=== PATIENT | male | born 1980 | race Caucasian/White ===

== ENCOUNTER 2017-11-09 21:57 | Emergency (ER) | payer SELFPAY ==
[2017-11-09] MEDS: Ibuprofen 600 MG Tab PO ONE (22:32)
--- NOTE | 2017-11-09 23:31 | EDM.PDOC ---
ED HPI GENERAL MEDICAL PROBLEM - General Chief Complaint: Eye Problems Stated Complaint: POSS EYE INJURY Time Seen by Provider: 11/09/17 22:28 - History of Present Illness INITIAL COMMENTS - FREE TEXT/NARRATIVE: 37-year-old male presents emergency room with eye pain. 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 The patient was wearing dark glasses but not full welding protection. Run 6 or 7 this evening he developed some pain in both eyes this is progressively worsened his eyes been watering quite a bit. Patient has not had injuries like this in the past he denies any foreign body exposures or other potential injuries today. Tetanus up-to-date. 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 Bilateral Eye Pain Score (Numeric/FACES): 10 - Related Data Allergies Allergy/AdvReac Type Severity Reaction Status Date / Time No Known Allergies Allergy Verified 11/09/17 22:07 Home Meds: Home Meds Ranitidine HCl [Ranitidine] 150 mg PO DAILY 11/09/17 [History] Past Medical History Gastrointestinal History: Reports: GERD, Other (See Below) Other Gastrointestinal History: diverticulitis Musculoskeletal History: Reports: Other (See Below) Other Musculoskeletal History: degenerative disk Social & Family History - Tobacco Use Smoking Status *Q: Never Smoker Second Hand Smoke Exposure: No - Caffeine Use Caffeine Use: Reports: Coffee - Recreational Drug Use Recreational Drug Use: No ED ROS GENERAL - Review of Systems Review Of Systems: See Below Constitutional: Reports: No Symptoms HEENT: Reports: Eye Pain Respiratory: Reports: No Symptoms, Cough GI/Abdominal: Reports: No Symptoms ED EXAM GENERAL W FULL EYE - Physical Exam Exam: See Below Exam Limited By: No Limitations General Appearance: Alert, No Apparent Distress Visual Acuity (R) 20/: 40 Visual Acuity (L) 20/: 40 With Correction: No Eyelids: Bilateral: Erythema (Mild), Lid Everted for Exam Conjunctiva & Sclera: Bilateral: Conjunctival Edema (Mild) Cornea Exam: Bilateral: Examined with Flourescein (Typical punctated lesions consistent with photo keratosis) Extraocular Movements: Bilateral: Intact Pupillary Reaction: Bilateral: Brisk Anterior Chamber: Bilateral: Normal Appearance Posterior Chamber: Bilateral: Normal Funduscopic Throat/Mouth: Normal Inspection, Normal Lips, Normal Teeth, Normal Gums, Normal Oropharynx, Normal Voice, No Airway Compromise Head: Atraumatic, Normocephalic Neck: Normal Inspection, Supple, Non-Tender, Full Range of Motion Respiratory/Chest: No Respiratory Distress, Lungs Clear, Normal Breath Sounds Cardiovascular: Regular Rate, Rhythm, No Murmur Course - Vital Signs Last Recorded V/S: Last Vital Signs Temp 36.2 C 11/09/17 22:04 Pulse 75 11/09/17 22:04 Resp 20 11/09/17 22:04 BP 126/83 11/09/17 22:04 Pulse Ox 97 11/09/17 22:04 - Orders/Labs/Meds Meds: Medications Discontinued Medications Generic Name Dose Route Start Last Admin Trade Name Heron PRN Reason Stop Dose Admin Erythromycin 1 gm 11/09/17 23:21 Erythromycin 0.5% Ophth Oint EYEBOTH 11/09/17 23:22 ONETIME ONE Fluorescein Sodium 0.6 mg 11/09/17 22:58 Ful-Debbie EYEBOTH 11/09/17 22:59 ONETIME ONE Ibuprofen 600 mg 11/09/17 22:30 11/09/17 22:32 Motrin PO 11/09/17 22:31 600 mg ONETIME ONE Administration Proparacaine HCl 0.01 ml 11/09/17 23:15 Proparacaine 0.5% Ophth Soln EYEBOTH 11/09/17 23:16 ONETIME ONE Departure - Departure Time of Disposition: 23:28 Disposition: Home, Self-Care 01 Clinical Impression: Photokeratitis of both eyes - Discharge Information Referrals: PCP,None [Primary Care Provider] - Forms: ED Department Discharge Additional Instructions: Return to the emergency room with any questions problems worsening symptoms. Follow-up with your eye doctor either tomorrow afternoon or Tuesday morning. You have been given 2 medications to the emergency department the first witnessed hydrocodone use this one or 2 every 4-6 hours for pain. Allow 12 hours after using this medication before driving or returning to work You have also been given some erythromycin eye ointment use 1/2 inch to each eye every 3- 4 hours while awake this acts like eye grease.. Follow-up at the workmen's comp doctor as directed.
[2017-11-09] MEDS: Fluorescein 0.6 MG Ophth Strip EYEBOTH ONE (23:39)
[2017-11-09] MEDS: Proparacaine 0.5% Ophth Soln 15 ML Bottle EYEBOTH ONE (23:39)
[2017-11-09] MEDS: Erythromycin Base 0.5% Ophth Oint 1 GM Tube EYEBOTH ONE (23:39)
== END 2017-11-09 23:41 | disposition home or self-care (01) ==
LOC: JD.ED 21:57
DX: H16.133 Photokeratitis, bilateral (principal); Z79.899 Other long term (current) drug therapy
CPT/HCPCS: 99283; A9270

== ENCOUNTER 2018-01-13 07:04 | Emergency (ER) | payer SELFPAY ==
[2018-01-13] MEDS ORDERED: Sodium Chloride 0.9% 10 ML Syringe FLUSH PRN (07:34)
[2018-01-13] MEDS ORDERED: Sodium Chloride 0.9% 1,000 ML IV STA (07:34)
[2018-01-13] MEDS ORDERED: Ondansetron 4 MG/2 ML SDV IVPUSH ONE (07:34)
[2018-01-13] MEDS ORDERED: HYDROmorphone 0.5 MG/0.5 ML SYRINGE IVPUSH ONE (07:35)
[2018-01-13] MEDS ORDERED: metroNIDAZOLE/Normal Saline 500 MG in Premix Bag 1 BAG IV ONE (07:37)
--- NOTE | 2018-01-13 07:40 | EDM.PDOC ---
ED HPI GENERAL MEDICAL PROBLEM - General Chief Complaint: Abdominal Pain Stated Complaint: ABDOMINAL PAIN Time Seen by Provider: 01/13/18 07:28 Source of Information: Reports: Patient History Limitations: Reports: No Limitations - History of Present Illness INITIAL COMMENTS - FREE TEXT/NARRATIVE: The patient presents with left lower quadrant abdominal pain, nausea, vomiting and diarrhea. This started last night. He has a history of diverticulitis. He says this is usually how it starts for him. He will get amoxicillin and flagyl. He has no fever, chills, chest pain, cough, shortness of breath or dysuria. He still has his appendix and gallbladder. Onset: Gradual Duration: Day(s): (Last night) Location: Reports: Abdomen Quality: Reports: Sharp Severity: Severe Improves with: Reports: None Worsens with: Reports: None Associated Symptoms: Reports: Loss of Appetite, Nausea/Vomiting. Denies: Chest Pain, Fever/Chills, Headaches, Shortness of Breath Lower Abdominal Pain Score (Numeric/FACES): 8 - Related Data Allergies Allergy/AdvReac Type Severity Reaction Status Date / Time No Known Allergies Allergy Verified 01/13/18 07:25 Home Meds: Home Meds Ranitidine HCl [Ranitidine] 150 mg PO DAILY 11/09/17 [History] Amoxicillin 1,000 mg PO BID #40 tab 01/13/18 [Rx] Cyclobenzaprine [Flexeril] 10 mg PO TID PRN #20 tab 01/13/18 [Rx] Hydrocodone/Acetaminophen [Hydrocodon-Acetaminophen 5-325] 1 - 2 each PO Q6HR PRN #10 tablet 01/13/18 [Rx] metroNIDAZOLE [Flagyl] 500 mg PO Q8H #30 tab 01/13/18 [Rx] Past Medical History Gastrointestinal History: Reports: GERD, Other (See Below) Other Gastrointestinal History: diverticulitis Musculoskeletal History: Reports: Arthritis, Other (See Below) Other Musculoskeletal History: degenerative disk Social & Family History - Tobacco Use Smoking Status *Q: Never Smoker Second Hand Smoke Exposure: No - Caffeine Use Caffeine Use: Reports: Coffee - Recreational Drug Use Recreational Drug Use: Yes Drug Use in Last 12 Months: Yes Recreational Drug Type: Reports: Marijuana/Hashish ED ROS GENERAL - Review of Systems Review Of Systems: See Below Constitutional: Reports: No Symptoms HEENT: Reports: No Symptoms Respiratory: Reports: No Symptoms Cardiovascular: Reports: No Symptoms Endocrine: Reports: No Symptoms GI/Abdominal: Reports: Abdominal Pain, Diarrhea, Nausea, Vomiting : Reports: No Symptoms Musculoskeletal: Reports: No Symptoms ED EXAM, GI/ABD - Physical Exam Exam: See Below Exam Limited By: No Limitations General Appearance: Alert, No Apparent Distress Ears: Normal External Exam Nose: Normal Inspection Head: Atraumatic, Normocephalic Neck: Normal Inspection Respiratory/Chest: No Respiratory Distress, Lungs Clear, Normal Breath Sounds Cardiovascular: Regular Rate, Rhythm, No Edema, No Murmur GI/Abdominal Exam: Soft, No Organomegaly, No Mass, Tender (Moderate tenderness to the left lower quadrant) Course - Vital Signs Last Recorded V/S: Last Vital Signs Temp 98.4 F 01/13/18 07:17 Pulse 68 01/13/18 08:15 Resp 16 01/13/18 08:15 BP 130/94 H 01/13/18 08:15 Pulse Ox 97 01/13/18 08:15 - Orders/Labs/Meds Orders: Active Orders 24 hr Category Date Time Status Peripheral IV Care [RC] . DIRECTED Care 01/13/18 07:35 Active UA W/MICROSCOPIC [URIN] Stat Lab 01/13/18 08:40 Ordered Sodium Chloride 0.9% [Saline Flush] Med 01/13/18 07:34 Active 10 ml FLUSH ASDIRECTED PRN ED Antiemetic Medication Reflex [OM.PC] Stat Oth 01/13/18 07:35 Ordered Peripheral IV Insertion Adult [OM.PC] Stat Oth 01/13/18 07:34 Ordered Medication Orders Sodium Chloride (Saline Flush) 10 ml FLUSH ASDIRECTED PRN PRN Reason: Keep Vein Open Last Admin: 01/13/18 07:20 Dose: 10 ml Labs: Laboratory Tests 01/13/18 01/13/18 01/13/18 Range/Units 07:20 07:20 08:40 WBC 7.11 (4.23-9.07) K/mm3 RBC 4.72 (4.63-6.08) M/mm3 Hgb 15.2 (13.7-17.5) gm/L Hct 43.1 (40.1-51.0) % MCV 91.3 (79.0-92.2) fl MCH 32.2 (25.7-32.2) pg MCHC 35.3 (32.2-35.5) g/dl RDW Std Deviation 41.1 (35.1-43.9) fL Plt Count 265 (163-337) K/mm3 MPV 9.9 (9.4-12.3) fl Neut % (Auto) 47.2 (34.0-67.9) % Lymph % (Auto) 38.8 (21.8-53.1) % [place] % (Auto) 9.7 (5.3-12.2) % Eos % (Auto) 3.1 (0.8-7.0) Baso % (Auto) 0.6 (0.1-1.2) % Neut # (Auto) 3.36 (1.78-5.38) K/mm3 Lymph # (Auto) 2.76 (1.32-3.57) K/mm3 [place] # (Auto) 0.69 (0.30-0.82) K/mm3 Eos # (Auto) 0.22 (0.04-0.54) K/mm3 Baso # (Auto) 0.04 (0.01-0.08) K/mm3 Sodium 137 (136-145) mEq/L Potassium 4.4 (3.5-5.1) mEq/L Chloride 104 (98-107) mEq/L Carbon Dioxide 25 (21-32) mEq/L Anion Gap 12.4 (5-15) BUN 18 (7-18) mg/dL Creatinine 1.0 (0.7-1.3) mg/dL Est Cr Clr Drug Dosing 125.38 mL/min Estimated GFR (MDRD) > 60 (>60) mL/min BUN/Creatinine Ratio 18.0 (14-18) Glucose 89 (74-106) mg/dL Calcium 9.3 (8.5-10.1) mg/dL Total Bilirubin 1.0 (0.2-1.0) mg/dL AST 26 (15-37) U/L ALT 54 (16-63) U/L Alkaline Phosphatase 92 (46-116) U/L C-Reactive Protein < 0.2 (<1.0) mg/dL Total Protein 7.7 (6.4-8.2) g/dl Albumin 4.1 (3.4-5.0) g/dl Globulin 3.6 gm/dL Albumin/Globulin Ratio 1.1 (1-2) Lipase 121 (73-393) U/L Urine Color Yellow (Yellow) Urine Appearance Clear (Clear) Urine pH 5.5 (5.0-8.0) Ur Specific [place] > or = 1.030 (1.005-1.030) Urine Protein Negative (Negative) Urine Glucose (UA) Negative (Negative) Urine Ketones Negative (Negative) Urine Occult Blood Negative (Negative) Urine Nitrite Negative (Negative) Urine Bilirubin Negative (Negative) Urine Urobilinogen 0.2 (0.2-1.0) Ur Leukocyte Esterase Negative (Negative) Urine RBC 0-5 (0-5) /hpf Urine WBC 0-5 (0-5) /hpf Ur Epithelial Cells Not seen (0-5) /hpf Urine Bacteria Few (FEW) /hpf Urine Mucus Not seen (FEW) /hpf Meds: Medications Generic Name Dose Route Start Last Admin Trade Name Freq PRN Reason Stop Dose Admin Sodium Chloride 10 ml 01/13/18 07:34 01/13/18 07:20 Saline Flush FLUSH 10 ml ASDIRECTED PRN Administration Keep Vein Open Discontinued Medications Generic Name Dose Route Start Last Admin Trade Name Freq PRN Reason Stop Dose Admin Hydromorphone HCl 1 mg 01/13/18 07:35 01/13/18 07:50 Dilaudid IVPUSH 01/13/18 07:36 1 mg ONETIME ONE Administration Sodium Chloride 1,000 mls @ 1,000 mls/hr 01/13/18 07:34 01/13/18 07:54 Normal Saline IV 01/13/18 08:33 1,000 mls/hr .BOLUS STA Administration Metronidazole 500 mg/ Premix 100 mls @ 100 mls/hr 01/13/18 07:37 01/13/18 07: 56 IV 01/13/18 08:36 100 mls/hr ONETIME ONE Administration Ondansetron HCl 4 mg 01/13/18 07:34 01/13/18 07:48 Zofran IVPUSH 01/13/18 07:35 4 mg ONETIME ONE Administration - Re-Assessments/Exams Free Text/Narrative Re-Assessment/Exam: 01/13/18 07:40 I ordered an IV NS 1L bolus, zofran 4mg IV, dilaudid 1mg IV, flagyl 500mg IV, labs, and UA. 01/13/18 08:42 His CBC and CMP look good. I am waiting for he urine now. 01/13/18 09:19 His UA looks good. I will get him on amoxicillin and flagyl. 01/13/18 09:33 He asked about his neck. He has been having neck pain for months. He is seen Dr Huang a chiropractor in [facility] and a message therapist. It has not been helping. His has pain to the right side of his neck with pain radiating down his right arm. He says at times he will feel week. On exam he had no tenderness to his neck and he had equal strength. He has been doing good conservative management. I will give him some flexeril and have him follow up with Dinora Da Silva to discuss possibly getting an MRI of his neck to assess for a bulging disc. Departure - Departure Time of Disposition: 09:20 Disposition: Home, Self-Care 01 Condition: Good Clinical Impression: Diverticulitis, Neck pain Abdominal pain Qualifiers: Abdominal location: left lower quadrant Qualified Code(s): R10.32 - Left lower quadrant pain - Discharge Information Prescriptions: Hydrocodone/Acetaminophen [Hydrocodon-Acetaminophen 5-325] 1 - 2 each PO Q6HR PRN #10 tablet PRN Reason: Pain Amoxicillin 1,000 mg PO BID #40 tab Cyclobenzaprine [Flexeril] 10 mg PO TID PRN #20 tab PRN Reason: Pain metroNIDAZOLE [Flagyl] 500 mg PO Q8H #30 tab Referrals: PCP,None [Primary Care Provider] - Dinora Da Silva PA-C [Ordering Only Provider] - 1 Week Forms: ED Department Discharge Additional Instructions: Take the amoxicillin 2 pills 2 times per day for 10 days. Take the flagyl 1 pill 3 times per day for 10 days. Take the hydrocone as needed for pain. You can also take a flexeril for your neck pain. Do not drive or operate machinery when taking hydrocodone or flexeril. Follow up with Dinora Da Silva. You may need an MRI of your neck. It sounds like you have been doing good conservative management. Please return if you are worse. - My Orders Last 24 Hours: My Active Orders 01/13/18 07:34 Sodium Chloride 0.9% [Saline Flush] 10 ml FLUSH ASDIRECTED PRN Peripheral IV Insertion Adult [OM.PC] Stat 01/13/18 07:35 Peripheral IV Care [RC] . DIRECTED ED Antiemetic Medication Reflex [OM.PC] Stat 01/13/18 08:40 UA W/MICROSCOPIC [URIN] Stat - Assessment/Plan Last 24 Hours: My Active Orders 01/13/18 07:34 Sodium Chloride 0.9% [Saline Flush] 10 ml FLUSH ASDIRECTED PRN Peripheral IV Insertion Adult [OM.PC] Stat 01/13/18 07:35 Peripheral IV Care [RC] . DIRECTED ED Antiemetic Medication Reflex [OM.PC] Stat 01/13/18 08:40 UA W/MICROSCOPIC [URIN] Stat
== END 2018-01-13 09:58 | disposition home or self-care (01) ==
LOC: JD.ED 07:04
DX: K57.92 Diverticulitis of intestine, part unspecified, without perforation or abscess without bleeding (principal); M54.2 Cervicalgia; Z79.899 Other long term (current) drug therapy
CPT/HCPCS: 36415; 80053; 81001; 83690; 85025; 86140; 96361; 96365; 96375; 99284; J1170; J2405; J7040; J7050

== ENCOUNTER 2018-11-09 11:07 | Emergency (ER) | payer BC, OTHER ==
--- NOTE | 2018-11-09 11:28 | EDM.PDOC ---
ED HPI GENERAL MEDICAL PROBLEM - General Chief Complaint: Upper Extremity Injury/Pain Stated Complaint: RIGHT ARM PAIN Time Seen by Provider: 11/09/18 11:19 Source of Information: Reports: Patient, RN Notes Reviewed History Limitations: Reports: No Limitations - History of Present Illness INITIAL COMMENTS - FREE TEXT/NARRATIVE: Patient is a 38 year old male who presents to the ED for the evaluation of chronic neck/right arm pain. He states that this has been going on for 1.5-2 years. He notes that he has nerve compression in his neck that he is being evaluated by a surgeon on Nov.24 for. He states that there is always tingling present, but this morning at 2 AM he was awakened by a shooting, fire-like pain into his arm that would not go away. He notes this to be a 03/28. He is a patient of Dr. Rian Garcia, and states that he has an appointment with him next week . He is supposed to take Gabapentin 300mg at bedtime, but he says this gives him the shakes, and does not like how it makes him feel. He has run out of his prescription pain medications, and states that these really only dull the pain, and do not provide much relief. He states that when the pain is this bad, he can usually stretch his neck and this helps, although this has not provided much relief today. He does take 800mg ibuprofen for pain relief, this also provides little relief. He has tried chiropractic treatments, massage, TENS unit, and other conservative measures, but everything is no longer working. Treatments NURSE OFFICE: Reports: NSAIDS Right Shoulder Pain Score (Numeric/FACES): 7 - Related Data Allergies Allergy/AdvReac Type Severity Reaction Status Date / Time No Known Allergies Allergy Verified 11/09/18 11:22 Home Meds: Home Meds Ranitidine HCl [Ranitidine] 150 mg PO DAILY 11/09/17 [History] Gabapentin [Neurontin] 100 mg PO TID #21 capsule 11/09/18 [Rx] oxyCODONE HCl/Acetaminophen [Percocet 10-325 mg Tablet] 1 each PO Q6H PRN #20 tablet 11/09/18 [Rx] predniSONE [Deltasone] 20 mg PO ASDIRECTED #14 tablet 11/09/18 [Rx] Past Medical History Gastrointestinal History: Reports: GERD, Other (See Below) Other Gastrointestinal History: diverticulitis Musculoskeletal History: Reports: Arthritis, Back Pain, Chronic, Other (See Below) Other Musculoskeletal History: degenerative disk Social & Family History - Tobacco Use Smoking Status *Q: Former Smoker Used Tobacco, but Quit: Yes Month/Year Tobacco Last Used: 7 years ago - Caffeine Use Caffeine Use: Reports: Coffee - Recreational Drug Use Recreational Drug Use: No - Living Situation & Occupation Living situation: Reports: Occupation: Employed Review of Systems - Review of Systems Review Of Systems: See Below Constitutional: Reports: No Symptoms Eyes: Reports: No Symptoms Ears: Reports: No Symptoms Nose: Reports: No Symptoms Mouth/Throat: Reports: No Symptoms Respiratory: Reports: No Symptoms Cardiovascular: Reports: No Symptoms GI/Abdominal: Reports: No Symptoms Genitourinary: Reports: No Symptoms Musculoskeletal: Reports: Neck Pain (R lower lateral neck pain), Arm Pain ( right arm pain) Skin: Reports: No Symptoms Neurological: Reports: Tingling, Weakness. Denies: Headache, Pre-Existing Deficit Psychiatric: Reports: No Symptoms ED EXAM, GENERAL - Physical Exam Exam: See Below Exam Limited By: No Limitations General Appearance: Alert, WD/WN, No Apparent Distress Eye Exam: Bilateral Eye: EOMI, Normal Inspection Ears: Normal External Exam Nose: Normal Inspection Throat/Mouth: Normal Inspection, Normal Oropharynx, No Airway Compromise Head: Atraumatic, Normocephalic Neck: Normal Inspection, Supple, Non-Tender, Full Range of Motion, Tender Lateral (Right lower lateral neck, that radiates into Right arm, point tenderness over superior trapezius muscle). No: Lymphadenopathy (L) Respiratory/Chest: No Respiratory Distress, Lungs Clear, Normal Breath Sounds, No Accessory Muscle Use, Chest Non-Tender Cardiovascular: Normal Peripheral Pulses, Regular Rate, Rhythm, No Murmur Back Exam: Normal Inspection Extremities: Normal Inspection, Non-Tender, Normal Capillary Refill, Limited Range of Motion (to right arm, due to nerve pain. He is able to passively move the arm it is painful to do so. [employer]/muscle strength is decreased on right side. Reflexes WNL) Neurological: Alert, Oriented, Normal Cognition, Normal Reflexes, Sensory/Motor Deficit (as noted in extremities exam) Psychiatric: Normal Affect, Normal Mood Skin Exam: Warm, Dry, Intact, Normal Color, No Rash Course - Vital Signs Last Recorded V/S: Last Vital Signs Temp 98.0 F 11/09/18 11:19 Pulse 66 11/09/18 11:19 Resp 18 11/09/18 11:19 BP 149/113 H 11/09/18 11:19 Pulse Ox 99 11/09/18 11:19 - Orders/Labs/Meds Meds: Medications Discontinued Medications Generic Name Dose Route Start Last Admin Trade Name Freq PRN Reason Stop Dose Admin Hydromorphone HCl 1 mg 11/09/18 12:20 Dilaudid IM 11/09/18 12:21 ONETIME ONE Oxycodone/Acetaminophen 2 tab 11/09/18 12:48 Percocet 325-5 Mg PO 11/09/18 12:49 ONETIME ONE - Re-Assessments/Exams Free Text/Narrative Re-Assessment/Exam: 11/09/18 12:37 Pt presents to the ED for the evaluation of chronic neck/right arm pain. I have ordered 2 tabs Percocet 5/325 for initial management and have provided him with scripts for gabapentin 100mg TID, prednisone 20mg BID for 7 days, and oxycodone 10/325 every Q6 PRN. These have been sent electronically to [facility] by [facility]. Due to the Gabapentin making him feel shaky; I have divided the dose into 100mg TID rather than 300mg all at once, in hopes it does not make him as shaky. Pt was made aware of this plan and is agreeable to this. Departure - Departure Time of Disposition: 12:26 Disposition: Home, Self-Care 01 Condition: Fair Clinical Impression: Radicular pain in right arm - Discharge Information *PRESCRIPTION DRUG MONITORING PROGRAM REVIEWED*: Yes *COPY OF PRESCRIPTION DRUG MONITORING REPORT IN PATIENT GERMAN: No Prescriptions: Gabapentin [Neurontin] 100 mg PO TID #21 capsule oxyCODONE HCl/Acetaminophen [Percocet 10-325 mg Tablet] 1 each PO Q6H PRN #20 tablet PRN Reason: Pain predniSONE [Deltasone] 20 mg PO ASDIRECTED #14 tablet Instructions: Neuropathic Pain, Pain Medicine Instructions, [id number] Referrals: Rian Garcia Jr, MD [Primary Care Provider] - Forms: ED Department Discharge Additional Instructions: You have been evaluated in the ED for your right arm pain. Please keep your appointment with Dr. Garcia next week for re- evaluation. You have been provided with prescriptions for: -Gabapentin 100 mg tablets, please take one tab THREE times daily. -Prednisone 20 mg, please take 1 tab TWO times daily for 7 days. -Oxycodone 10/325, please take 1 tab every 6 hours as needed for pain. Prescriptions were electronically sent to [facility], located near [facility]. Recommend taking Miralax or similar stool softener to prevent constipation symptoms. Please return to ED if your symptoms change or worsen.
[2018-11-09] MEDS ORDERED: HYDROmorphone 1 MG/ML Syringe IM ONE (12:20)
[2018-11-09] MEDS ORDERED: Acetaminophen/oxyCODONE 325-5 MG Tab PO ONE (12:48)
== END 2018-11-09 13:02 | disposition home or self-care (01) ==
LOC: JD.ED 11:07
DX: M79.601 Pain in right arm (principal); M54.10 Radiculopathy, site unspecified; K21.9 Gastro-esophageal reflux disease without esophagitis; Z79.899 Other long term (current) drug therapy; Z87.891 Personal history of nicotine dependence
CPT/HCPCS: 99283; A9270

== ENCOUNTER 2019-10-28 05:32 | Emergency (ER) | payer SELFPAY ==
[2019-10-28] MEDS ORDERED: Ondansetron 4 MG/2 ML SDV IVPUSH ONE (05:58)
[2019-10-28] MEDS ORDERED: HYDROmorphone 0.5 MG/0.5 ML Syringe IVPUSH ONE ×2 (05:58→08:07)
[2019-10-28] MEDS ORDERED: Sodium Chloride 0.9% 1,000 ML IV SCH (06:00)
--- NOTE | 2019-10-28 06:02 | EDM.PDOC ---
<Korey Guerra - Last Filed: 10/28/19 08:06> ED HPI GENERAL MEDICAL PROBLEM - General Chief Complaint: Abdominal Pain Stated Complaint: BLADDER PAIN Time Seen by Provider: 10/28/19 05:52 Source of Information: Reports: Patient History Limitations: Reports: No Limitations - History of Present Illness INITIAL COMMENTS - FREE TEXT/NARRATIVE: This is a 39-year-old male. He awoke around 4 AM this morning with severe left lower quadrant and midline abdominal pain. More of a dull throbbing with sharp pain that shoots into his back. It is not up into his flank but actually into his back. He has no history of kidney stones though he does have a history of 2 episodes of diverticulitis of the sigmoid colon. He thinks it is the diverticulitis acting up again but he is not sure. He denies any difficulty with urination or defecation over the last 24 hours. He denies any fever or chills. He is nauseated but he has not vomited. Abdomen Pain Score (Numeric/FACES): 7 - Related Data Allergies Allergy/AdvReac Type Severity Reaction Status Date / Time No Known Allergies Allergy Verified 03/29/19 06:47 Home Meds: Home Meds Ranitidine HCl [Ranitidine] 150 mg PO DAILY 11/09/17 [History] Gabapentin [Neurontin] 100 mg PO TID #21 capsule 11/09/18 [Rx] oxyCODONE HCl/Acetaminophen [Percocet 10-325 mg Tablet] 1 each PO Q6H PRN #20 tablet 11/09/18 [Rx] predniSONE [Deltasone] 20 mg PO ASDIRECTED #14 tablet 11/09/18 [Rx] Past Medical History Gastrointestinal History: Reports: GERD, Other (See Below) Other Gastrointestinal History: diverticulitis Musculoskeletal History: Reports: Arthritis, Back Pain, Chronic, Other (See Below) Other Musculoskeletal History: degenerative disk Social & Family History - Tobacco Use Smoking Status *Q: Never Smoker Second Hand Smoke Exposure: No - Caffeine Use Caffeine Use: Reports: None - Recreational Drug Use Recreational Drug Use: Yes Recreational Drug Type: Reports: Marijuana/Hashish - Living Situation & Occupation Living situation: Reports: Occupation: Employed ED ROS GENERAL - Review of Systems Review Of Systems: See Below Constitutional: Denies: Fever, Chills HEENT: Reports: No Symptoms Respiratory: Reports: No Symptoms Cardiovascular: Reports: No Symptoms Endocrine: Reports: No Symptoms GI/Abdominal: Reports: Abdominal Pain, Nausea. Denies: Diarrhea, Vomiting : Denies: Dysuria, Flank Pain Musculoskeletal: Reports: No Symptoms Skin: Reports: No Symptoms Neurological: Reports: No Symptoms Psychiatric: Reports: No Symptoms Hematologic/Lymphatic: Reports: No Symptoms ED EXAM, GI/ABD - Physical Exam Exam: See Below Exam Limited By: No Limitations General Appearance: Alert, WD/WN, Mild Distress Eyes: Bilateral: Normal Appearance Ears: Normal External Exam Nose: Normal Inspection Throat/Mouth: Normal Lips, Normal Voice, No Airway Compromise Head: Normocephalic Neck: Supple Respiratory/Chest: No Respiratory Distress, Lungs Clear, Normal Breath Sounds Cardiovascular: Regular Rate, Rhythm, No Murmur GI/Abdominal Exam: Other (Upper abdomen is soft nontender, lower abdomen he does have tenderness in the left lower quadrant, there is minimal guarding and no rigidity, he also has some midline lower abdominal soreness as well.) Back Exam: Normal Inspection, Full Range of Motion Extremities: Normal Inspection, Normal Range of Motion Neurological: Alert, Oriented Psychiatric: Anxious Skin Exam: Warm, Dry Course - Vital Signs Last Recorded V/S: Last Vital Signs Temp 97.4 F 10/28/19 07:35 Pulse 58 L 10/28/19 07:35 Resp 16 10/28/19 07:35 BP 116/80 10/28/19 07:35 Pulse Ox 96 10/28/19 07:35 - Orders/Labs/Meds Orders: Active Orders 24 hr Category Date Time Status UA W/MICROSCOPIC [URIN] Stat Lab 10/28/19 05:58 Ordered Sodium Chloride 0.9% [Normal Saline] 1,000 ml Med 10/28/19 06:00 Active IV ASDIRECTED Sodium Chloride 0.9% [Saline Flush] Med 10/28/19 07:47 Active 10 ml FLUSH ONETIME PRN Medication Orders Sodium Chloride (Normal Saline) 1,000 mls @ 1,000 mls/hr IV ASDIRECTED CORY Last Admin: 10/28/19 06:18 Dose: 1,000 mls/hr Sodium Chloride (Saline Flush) 10 ml FLUSH ONETIME PRN PRN Reason: Keep Vein Open Last Admin: 10/28/19 07:58 Dose: 10 ml Labs: Laboratory Tests 10/28/19 10/28/19 Range/Units 06:15 06:15 WBC 7.06 (4.23-9.07) K/mm3 RBC 4.93 (4.63-6.08) M/mm3 Hgb 15.7 (13.7-17.5) gm/dl Hct 45.0 (40.1-51.0) % MCV 91.3 (79.0-92.2) fl MCH 31.8 (25.7-32.2) pg MCHC 34.9 (32.2-35.5) g/dl RDW Std Deviation 41.2 (35.1-43.9) fL Plt Count 267 (163-337) K/mm3 MPV 9.4 (9.4-12.3) fl Neut % (Auto) 51.5 (34.0-67.9) % Lymph % (Auto) 31.2 (21.8-53.1) % [place] % (Auto) 11.5 (5.3-12.2) % Eos % (Auto) 4.8 (0.8-7.0) Baso % (Auto) 0.6 (0.1-1.2) % Neut # (Auto) 3.64 (1.78-5.38) K/mm3 Lymph # (Auto) 2.20 (1.32-3.57) K/mm3 [place] # (Auto) 0.81 (0.30-0.82) K/mm3 Eos # (Auto) 0.34 (0.04-0.54) K/mm3 Baso # (Auto) 0.04 (0.01-0.08) K/mm3 Sodium 141 (136-145) mEq/L Potassium 4.2 (3.5-5.1) mEq/L Chloride 103 (98-107) mEq/L Carbon Dioxide 27 (21-32) mEq/L Anion Gap 15.2 H (5-15) BUN 16 (7-18) mg/dL Creatinine 1.2 (0.7-1.3) mg/dL Est Cr Clr Drug Dosing 102.47 mL/min Estimated GFR (MDRD) > 60 (>60) mL/min BUN/Creatinine Ratio 13.3 L (14-18) Glucose 97 (74-106) mg/dL Calcium 9.1 (8.5-10.1) mg/dL Total Bilirubin 1.0 (0.2-1.0) mg/dL AST 25 (15-37) U/L ALT 56 (16-63) U/L Alkaline Phosphatase 95 (46-116) U/L C-Reactive Protein 0.8 (<1.0) mg/dL Total Protein 7.7 (6.4-8.2) g/dl Albumin 4.0 (3.4-5.0) g/dl Globulin 3.7 gm/dL Albumin/Globulin Ratio 1.1 (1-2) Meds: Medications Generic Name Dose Route Start Last Admin Trade Name Freq PRN Reason Stop Dose Admin Sodium Chloride 1,000 mls @ 1,000 mls/hr 10/28/19 06:00 10/28/19 06:18 Normal Saline IV 1,000 mls/hr ASDIRECTED CORY Administration Sodium Chloride 10 ml 10/28/19 07:47 10/28/19 07:58 Saline Flush FLUSH 10 ml ONETIME PRN Administration Keep Vein Open Discontinued Medications Generic Name Dose Route Start Last Admin Trade Name Freq PRN Reason Stop Dose Admin Diatrizoate Meglum/Diatrizoate Sod 90 ml 10/28/19 07:47 10/28/19 07:58 Gastrografin 37% PO 10/28/19 07:48 90 ml ONETIME ONE Administration Hydromorphone HCl 0.5 mg 10/28/19 05:58 10/28/19 06:18 Dilaudid IVPUSH 10/28/19 05:59 0.5 mg ONETIME ONE Administration Hydromorphone HCl 0.5 mg 10/28/19 08:07 10/28/19 08:14 Dilaudid IVPUSH 10/28/19 08:08 0.5 mg ONETIME ONE Administration Iopamidol 100 ml 10/28/19 07:47 10/28/19 07:58 Isovue-370 (76%) IVPUSH 10/28/19 07:48 100 ml ONETIME ONE Administration Ondansetron HCl 4 mg 10/28/19 05:58 10/28/19 06:18 Zofran IVPUSH 10/28/19 05:59 4 mg ONETIME ONE Administration - Re-Assessments/Exams Free Text/Narrative Re-Assessment/Exam: 10/28/19 08:09 Patient has come back from CT scan his pain has come back I will provide another dose of Dilaudid. My shift is over and Dr. Mejia to go to take over his care and follow-up with the report for the contrasted CT scan. Departure - Departure Disposition: Home, Self-Care 01 Clinical Impression: Abdominal pain Qualifiers: Abdominal location: left lower quadrant Qualified Code(s): R10.32 - Left lower quadrant pain - Discharge Information Referrals: PCP,None [Primary Care Provider] - Forms: ED Department Discharge Additional Instructions: Clear liquids until this afternoon, then very careful bland diet as tolerated. Probiotic twice daily for 5 days and thereafter as needed. Follow-up clinic as needed if symptoms not resolving as expected. Return to ED as needed if symptoms worsening in any way. Sepsis Event Note - Evaluation Sepsis Screening Result: No Definite Risk - Focused Exam Vital Signs: Vital Signs Temp Pulse Resp BP Pulse Ox 10/28/19 07:35 97.4 F 58 L 16 116/80 96 10/28/19 05:38 97.6 F 62 24 H 125/113 H 99 Date Exam was Performed: 10/28/19 Time Exam was Performed: 08:06 <Zaid Mejia L - Last Filed: 10/28/19 08:56> Course - Re-Assessments/Exams Free Text/Narrative Re-Assessment/Exam: 10/28/19 08:52 Have assumed care from Dr. Guerra after change of shift. Abdominal CT reports is back showing diverticuli but no evidence for diverticulitis or other acute abnormality, see radiology report for details. He is resting more comfortably now after a further dose of pain medication short time ago. He states he had been feeling fine yesterday and then the acute onset of sharp shooting discomfort lower abdomen about 5 hours ago. He did eat out last evening, he states "that the chicken tasted a little strange" so this could be adverse food reaction. UA is still pending but abdominal CT did not show any sign of stone, hydroureter or kidney abnormality. Discharge instructions as documented. Departure - Departure Time of Disposition: 08:55 Condition: Fair Sepsis Event Note - Focused Exam Date Exam was Performed: 10/28/19 Time Exam was Performed: 08:52
[2019-10-28] MEDS ORDERED: Diatrizoate Meglumine/Diatrizoate Sodium 37% 120 ML Bottle PO ONE (07:47)
[2019-10-28] MEDS ORDERED: Iopamidol 755 Mg/ML 100 ML Bottle IVPUSH ONE (07:47)
[2019-10-28] MEDS ORDERED: Sodium Chloride 0.9% 10 ML Syringe FLUSH PRN (07:47)
--- NOTE | 2019-10-28 08:32 | CT ---
CT abdomen and pelvis Technique: Multiple axial sections were obtained from above the dome of the diaphragm inferiorly through the pubic symphysis. Intravenous and oral contrast has been given. Delayed images were also obtained through the bladder. Comparison: Prior CT abdomen and pelvis exam of 06/30/18. Findings: Visualized lung bases show nothing acute. Liver contains no focal parenchymal abnormality. Possible mild fatty infiltration is present within the liver. Spleen appears within normal limits. Adrenal glands show no nodule. Kidneys show symmetric contrast enhancement without hydronephrosis or mass. Pancreas appears within normal limits. Gallbladder is mostly collapsed but shows no calcified gallstones. Aorta shows no aneurysm. No retroperitoneal adenopathy or mesenteric abnormalities are seen. Appendix is seen which appears within normal limits. No pelvic mass or adenopathy is seen. No free fluid is seen. Numerous diverticuli are seen within the colon. No definite inflammatory change is seen to indicate diverticulitis. Delayed images shows no contrast within the bladder raising the possibility of dehydration. Bone window settings were reviewed. Mild compression deformities are seen within the thoracic spine which are old. Scattered degenerative change is noted which is stable. Small fat-containing umbilical hernia is noted. Impression: 1. Lack of contrast within the bladder on delayed images raising the possibility of dehydration. 2. Diverticuli within the colon without inflammatory change of diverticulitis. 3. Other findings believed to be incidental as noted above. Nothing acute is appreciated on CT study of the abdomen and pelvis. No change from previous CT study is seen. Diagnostic code #2 This report was dictated in [place] Standard Time
== END 2019-10-28 09:05 | disposition home or self-care (01) ==
LOC: JD.ED 05:32
DX: R10.32 Left lower quadrant pain (principal)
CPT/HCPCS: 36415; 74177; 80053; 85025; 86140; 96361; 96374; 96375; 96376; 99284; J1170; J2405; J7030; Q9963; Q9967

== ENCOUNTER 2020-07-27 10:21 | Emergency (ER) | payer SELFPAY ==
[2020-07-27] MEDS ORDERED: Sodium Chloride 0.9% 1,000 ML IV STA (12:04)
[2020-07-27] MEDS ORDERED: HYDROmorphone 0.5 MG/0.5 ML Syringe IVPUSH ONE ×2 (12:04→14:28)
[2020-07-27] MEDS ORDERED: Ondansetron 4 MG/2 ML SDV IVPUSH ONE (12:04)
[2020-07-27] MEDS ORDERED: Iopamidol 612 MG/ML 50 ML SDV IVPUSH ONE (12:37)
[2020-07-27] MEDS ORDERED: Diatrizoate Meglumine/Diatrizoate Sodium 37% 120 ML Bottle PO ONE (12:37)
[2020-07-27] MEDS ORDERED: Sodium Chloride 0.9% 10 ML Syringe FLUSH PRN (12:37)
[2020-07-27] MEDS ORDERED: Iopamidol 612 MG/ML 100 ML Bottle IVPUSH ONE (12:37)
--- NOTE | 2020-07-27 13:18 | EDM.PDOC ---
ED HPI GENERAL MEDICAL PROBLEM - General Chief Complaint: Abdominal Pain Stated Complaint: ABDOMINAL PAIN Time Seen by Provider: 07/27/20 11:50 Source of Information: Reports: Patient, RN Notes Reviewed History Limitations: Reports: No Limitations - History of Present Illness INITIAL COMMENTS - FREE TEXT/NARRATIVE: Patient is a 39-year-old male presenting to the emergency department with complaints of left lower quadrant abdominal pain radiating into his left lower back. Symptoms began yesterday. He describes it as a sharp stabbing pain with occasional episodes of worsening pain. He does have a history of diverticulitis, but states that this is more intense than he remembered in the past. He denies any history of kidney stones. Denies any nausea, vomiting, fever, or chills. Left Lower Abdomen Pain Score (Numeric/FACES): 6 - Related Data Allergies Allergy/AdvReac Type Severity Reaction Status Date / Time No Known Allergies Allergy Verified 07/27/20 10:44 Home Meds: Home Meds Ranitidine HCl [Ranitidine] 150 mg PO DAILY 11/09/17 [History] Gabapentin [Neurontin] 100 mg PO TID #21 capsule 11/09/18 [Rx] oxyCODONE HCl/Acetaminophen [Percocet 10-325 mg Tablet] 1 each PO Q6H PRN #20 tablet 11/09/18 [Rx] predniSONE [Deltasone] 20 mg PO ASDIRECTED #14 tablet 11/09/18 [Rx] Past Medical History Gastrointestinal History: Reports: GERD, Other (See Below) Other Gastrointestinal History: diverticulitis Musculoskeletal History: Reports: Arthritis, Back Pain, Chronic, Other (See Below) Other Musculoskeletal History: degenerative disk - Infectious Disease History Infectious Disease History: Reports: None Social & Family History - Tobacco Use Tobacco Use Status *Q: Never Tobacco User Second Hand Smoke Exposure: No - Caffeine Use Caffeine Use: Reports: None - Recreational Drug Use Recreational Drug Use: Yes Drug Use in Last 12 Months: Yes Recreational Drug Type: Reports: Marijuana/Hashish - Living Situation & Occupation Living situation: Reports: Occupation: Employed ED ROS GENERAL - Review of Systems Review Of Systems: See Below Constitutional: Reports: No Symptoms. Denies: Fever, Chills, Weakness HEENT: Reports: No Symptoms Respiratory: Reports: No Symptoms Cardiovascular: Reports: No Symptoms Endocrine: Reports: No Symptoms GI/Abdominal: Reports: Abdominal Pain (Left lower quadrant) : Reports: Flank Pain, Frequency. Denies: Dysuria, Hematuria Musculoskeletal: Reports: No Symptoms Skin: Reports: No Symptoms Neurological: Reports: No Symptoms Psychiatric: Reports: No Symptoms Hematologic/Lymphatic: Reports: No Symptoms Immunologic: Reports: No Symptoms ED EXAM, GI/ABD - Physical Exam Exam: See Below General Appearance: Alert, WD/WN, No Apparent Distress Respiratory/Chest: No Respiratory Distress, Lungs Clear, Normal Breath Sounds, No Accessory Muscle Use, Chest Non-Tender Cardiovascular: Normal Peripheral Pulses, Regular Rate, Rhythm, No Edema, No Gallop, No JVD, No Murmur, No Rub GI/Abdominal Exam: Normal Bowel Sounds, Soft, No Organomegaly, No Distention, No Abnormal Bruit, No Mass, Pelvis Stable, Tender (LLQ) Back Exam: Normal Inspection, Full Range of Motion. No: CVA Tenderness (L), CVA Tenderness (R) Neurological: Alert, Oriented, CN II-XII Intact, Normal Cognition, Normal Gait, Normal Reflexes, No Motor/Sensory Deficits Psychiatric: Normal Affect, Normal Mood Skin Exam: Warm, Dry, Intact, Normal Color, No Rash Course - Vital Signs Last Recorded V/S: Last Vital Signs Temp 97.5 F 07/27/20 10:42 Pulse 76 07/27/20 10:42 Resp 18 07/27/20 10:42 BP 132/93 H 07/27/20 10:42 Pulse Ox 98 07/27/20 10:42 - Orders/Labs/Meds Orders: Active Orders 24 hr Category Date Time Status Abdomen Pelvis w Cont [CT] Stat Exams 07/27/20 12:31 Taken Sodium Chloride 0.9% [Saline Flush] Med 07/27/20 12:37 Active 10 ml FLUSH ONETIME PRN Medication Orders Sodium Chloride (Saline Flush) 10 ml FLUSH ONETIME PRN PRN Reason: Keep Vein Open Last Admin: 07/27/20 13:48 Dose: 10 ml Documented by: PINEDA Labs: Laboratory Tests 07/27/20 07/27/20 07/27/20 Range/Units 10:50 10:50 12:10 WBC 8.97 (4.23-9.07) K/mm3 RBC 4.77 (4.63-6.08) M/mm3 Hgb 15.3 (13.7-17.5) gm/dl Hct 43.9 (40.1-51.0) % MCV 92.0 (79.0-92.2) fl MCH 32.1 (25.7-32.2) pg MCHC 34.9 (32.2-35.5) g/dl RDW Std Deviation 42.0 (35.1-43.9) fL Plt Count 251 (163-337) K/mm3 MPV 9.5 (9.4-12.3) fl Neutrophils % (Manual) 67 H (40-60) % Band Neutrophils % 0 (0-10) % Lymphocytes % (Manual) 33 (20-40) % Atypical Lymphs % 0 % Monocytes % (Manual) 0 L (2-10) % Eosinophils % (Manual) 0 L (0.8-7.0) % Basophils % (Manual) 0 L (0.2-1.2) Platelet Estimate Adequate RBC Morph Comment Normal Sodium 136 (136-145) mEq/L Potassium 4.3 (3.5-5.1) mEq/L Chloride 102 (98-107) mEq/L Carbon Dioxide 23 (21-32) mEq/L Anion Gap 15.3 H (5-15) BUN 12 (7-18) mg/dL Creatinine 1.1 (0.7-1.3) mg/dL Est Cr Clr Drug Dosing 111.79 mL/min Estimated GFR (MDRD) > 60 (>60) mL/min BUN/Creatinine Ratio 10.9 L (14-18) Glucose 97 (74-106) mg/dL Calcium 9.3 (8.5-10.1) mg/dL Total Bilirubin 1.2 H (0.2-1.0) mg/dL AST 20 (15-37) U/L ALT 46 (16-63) U/L Alkaline Phosphatase 79 (46-116) U/L C-Reactive Protein 1.2 H* (<1.0) mg/dL Total Protein 7.6 (6.4-8.2) g/dl Albumin 4.0 (3.4-5.0) g/dl Globulin 3.6 gm/dL Albumin/Globulin Ratio 1.1 (1-2) Lipase 82 (73-393) U/L Urine Color Yellow (Yellow) Urine Appearance Clear (Clear) Urine pH 6.0 (5.0-8.0) Ur Specific [place] > or = 1.030 (1.005-1.030) Urine Protein Negative (Negative) Urine Glucose (UA) Negative (Negative) Urine Ketones Negative (Negative) Urine Occult Blood Negative (Negative) Urine Nitrite Negative (Negative) Urine Bilirubin Negative (Negative) Urine Urobilinogen 0.2 (0.2-1.0) Ur Leukocyte Esterase Negative (Negative) Urine RBC 0-5 (0-5) /hpf Urine WBC 0-5 (0-5) /hpf Ur Epithelial Cells Not seen (0-5) /hpf Urine Bacteria Few (FEW) /hpf Urine Mucus Few (FEW) /hpf Meds: Medications Generic Name Dose Route Start Last Admin Trade Name Freq PRN Reason Stop Dose Admin Sodium Chloride 10 ml 07/27/20 12:37 07/27/20 13:48 Saline Flush FLUSH 10 ml ONETIME PRN Administration Keep Vein Open Discontinued Medications Generic Name Dose Route Start Last Admin Trade Name Freq PRN Reason Stop Dose Admin Diatrizoate Meglum/Diatrizoate Sod 40 ml 07/27/20 12:37 07/27/20 13:49 Gastrografin 37% PO 07/27/20 12:38 45 ml ONETIME ONE Administration Hydromorphone HCl 0.5 mg 07/27/20 12:04 07/27/20 12:10 Dilaudid IVPUSH 07/27/20 12:05 0.5 mg ONETIME ONE Administration Hydromorphone HCl 0.5 mg 07/27/20 14:28 07/27/20 14:33 Dilaudid IVPUSH 07/27/20 14:29 0.5 mg ONETIME ONE Administration Sodium Chloride 1,000 mls @ 999 mls/hr 07/27/20 12:04 07/27/20 12:10 Normal Saline IV 07/27/20 13:04 999 mls/hr NOW STA Administration Iopamidol 100 ml 07/27/20 12:37 07/27/20 13:48 Isovue-300 (61%) IVPUSH 07/27/20 12:38 100 ml ONETIME ONE Administration Iopamidol 25 ml 07/27/20 12:37 07/27/20 13:48 Isovue-300 (61%) IVPUSH 07/27/20 12:38 25 ml ONETIME ONE Administration Ketorolac Tromethamine 30 mg 07/27/20 14:30 07/27/20 14:44 Toradol IVPUSH 07/27/20 14:31 30 mg ONETIME ONE Administration Ondansetron HCl 4 mg 07/27/20 12:04 07/27/20 12:10 Zofran IVPUSH 07/27/20 12:05 4 mg ONETIME ONE Administration - Re-Assessments/Exams Free Text/Narrative Re-Assessment/Exam: Patient is a 39-year-old male presenting to the emergency department with planes of left lower quadrant abdominal pain radiating through to his back. Symptoms started yesterday. He describes it as a sharp stabbing pain with occasional waxing and waning. He has a history of diverticulitis but states that this feels more severe than his previous episodes. Denies any history of kidney stones. He has had no nausea, vomiting, fever, or chills. He has been using [id number] Tylenol and ibuprofen for pain with little relief. I have ordered CBC, CMP, CRP, urinalysis, CT scan of the abdomen and pelvis with contrast. 07/27/20 15:32 Hematology was grossly unremarkable. WBCs were normal, CRP was very minimally elevated at 1.2. Urinalysis was normal. CT scan of the abdomen pelvis showed ending suggestive of acute diverticulitis. We will start the patient on oral Levaquin and Flagyl for treatment of diverticulitis. Insta med prescriptions will be provided. Discussed pain management with patient. She would like "very few tablets "of a pain medication to only use if he absolutely needs to. I will write for [place] 6 tabs. Recommend Tylenol ibuprofen routinely. Discharge instructions as documented. Departure - Departure Time of Disposition: 15:33 Disposition: Home, Self-Care 01 Condition: Good Clinical Impression: Diverticulitis - Discharge Information *PRESCRIPTION DRUG MONITORING PROGRAM REVIEWED*: Yes *COPY OF PRESCRIPTION DRUG MONITORING REPORT IN PATIENT GERMAN: No Instructions: Diverticulitis Referrals: PCP,None [Primary Care Provider] - Forms: ED Department Discharge Additional Instructions: You were seen in the emergency department today for left lower quadrant abdominal pain that started yesterday. Work-up included blood work, urinalysis, and a CT scan of your abdomen pelvis. Results your work-up was consistent with a diagnosis of diverticulitis. A prescription for Levaquin and Flagyl has been provided. These are antibiotics to treat the diverticulitis. Recommend routine use of Tylenol and ibuprofen for pain. For pain not relieved by these measures, a small quantity of [place] has been provided. Use only as prescribed. Do not work or drive for 12 hours after taking these medications as it can be sedating. If you experience symptoms of worsening abdominal pain, fever, chills, or any other symptoms of concern, please o not hesitate to return to the emergency department for reevaluation. Sepsis Event Note (ED) - Evaluation Sepsis Screening Result: No Definite Risk - Focused Exam Vital Signs: Vital Signs Temp Pulse Resp BP Pulse Ox 07/27/20 10:42 97.5 F 76 18 132/93 H 98 - My Orders Last 24 Hours: My Active Orders 07/27/20 12:31 Abdomen Pelvis w Cont [CT] Stat 07/27/20 12:37 Sodium Chloride 0.9% [Saline Flush] 10 ml FLUSH ONETIME PRN - Assessment/Plan Last 24 Hours: My Active Orders 07/27/20 12:31 Abdomen Pelvis w Cont [CT] Stat 07/27/20 12:37 Sodium Chloride 0.9% [Saline Flush] 10 ml FLUSH ONETIME PRN
[2020-07-27] MEDS ORDERED: Ketorolac 30 MG/ML SDV IVPUSH ONE (14:30)
--- NOTE | 2020-07-28 09:50 | CT ---
"PROCEDURE INFORMATION: Exam: CT Abdomen And Pelvis With Contrast Exam date and time: 07/27/2020 1:32 PM Age: 39 years old Clinical indication: Abdominal pain; Localized; Left lower quadrant (llq); Patient HX: HX of diverticulitis TECHNIQUE: Imaging protocol: Computed tomography of the abdomen and pelvis with intravenous contrast. COMPARISON: CT Abdomen Pelvis w Cont 10/28/2019 7:50 AM FINDINGS: Lungs: Unremarkable.No mass or nodule. Liver: Normal. No mass. Gallbladder and bile ducts: Normal. No calcified stones. No ductal dilation. Pancreas: Normal. No ductal dilation. Spleen: Normal. No splenomegaly. Adrenal glands: Normal. No mass. Kidneys and ureters: Normal. No hydronephrosis. Stomach and bowel: Unremarkable. No obstruction. Sigmoid diverticulosis. There is mural thickening and mild pericolic stranding in the proximal sigmoid consistent with acute diverticulitis. No free air or fluid. No abscess identified. Appendix: No evidence of appendicitis. Intraperitoneal space: Unremarkable. No free air. No significant fluid collection. Vasculature: Unremarkable. No abdominal aortic aneurysm. Lymph nodes: Unremarkable. No enlarged lymph nodes. Urinary bladder: Unremarkable as visualized. Reproductive: Unremarkable as visualized. Bones/joints: Unremarkable. No acute fracture. Soft tissues: Unremarkable. EDENDISHA | Final Radiology Report CONFIDENTIALITY STATEMENT This report is intended only for use by the referring physician, and only in accordance with law. If you received this in error, call [phone]. Page 2 of 2 IMPRESSION: Findings suggest acute diverticulitis. Thank you for allowing us to participate in the care of your patient. Dictated and Authenticated by: James Landry MD 07/27/2020 3:22 PM Central Time ([place] & [place]) [place]"
== END 2020-07-27 15:50 | disposition home or self-care (01) ==
LOC: JD.ED 10:21
DX: K57.32 Diverticulitis of large intestine without perforation or abscess without bleeding (principal); K21.9 Gastro-esophageal reflux disease without esophagitis; Z79.899 Other long term (current) drug therapy
CPT/HCPCS: 36415; 74177; 80053; 81001; 83690; 85007; 85027; 86140; 96374; 96375; 96376; 99284; J1170; J1885; J2405; J7030; Q9963; Q9967